=== PATIENT | male | born 1965 ===

== ENCOUNTER 2022-06-05 07:39 | Day surgery (SDC) | payer OTHER ==
[~2022-06-05] VITALS: Ht 172.7 cm; Wt 97.1 kg
[2022-06-05] MEDS ORDERED: ASPI81CH (07:47)
[2022-06-05] MEDS ORDERED: Lisinopril2.5 MG (07:52)
[2022-06-05] MEDS ORDERED: ATOR10 (07:52)
[2022-06-05] MEDS ORDERED: BUPR75 (07:52)
[2022-06-05] MEDS ORDERED: METF500 (07:52)
[2022-06-05] MEDS ORDERED: GABA100 (07:52)
[2022-06-05] MEDS ORDERED: OMEP20ER (07:53)
[2022-06-05 09:45] VITALS: BP 100/64
== END 2022-06-05 09:41 | disposition home or self-care (01) ==
LOC: ORSCSDS 07:39
PROVIDERS: Student in an Organized Health Care Education/Training Program
PROC: 0DBL8ZX Excision of Transverse Colon, Via Natural or Artificial Opening Endoscopic, Diagnostic (ICD-10-PCS; principal; 2022-06-05 08:45)
PROC: 0DBH8ZX Excision of Cecum, Via Natural or Artificial Opening Endoscopic, Diagnostic (ICD-10-PCS; principal; 2022-06-05 08:45)
PROC: 0DBP8ZX Excision of Rectum, Via Natural or Artificial Opening Endoscopic, Diagnostic (ICD-10-PCS; principal; 2022-06-05 08:45)
PROC: 0DBN8ZX Excision of Sigmoid Colon, Via Natural or Artificial Opening Endoscopic, Diagnostic (ICD-10-PCS; principal; 2022-06-05 08:45)
DX: Z12.11 Encounter for screening for malignant neoplasm of colon (principal); Z86.010 Personal history of colon polyps; D12.0 Benign neoplasm of cecum; D12.3 Benign neoplasm of transverse colon; K63.5 Polyp of colon; K57.30 Diverticulosis of large intestine without perforation or abscess without bleeding; E11.9 Type 2 diabetes mellitus without complications; I10 Essential (primary) hypertension; Z79.84 Long term (current) use of oral hypoglycemic drugs; Z79.899 Other long term (current) drug therapy
CPT/HCPCS: 82947; 88305; J2001; J2405; J2704; J7120

== ENCOUNTER 2024-05-21 05:28 | Emergency (ER) | payer OTHER ==
[~2024-05-21] VITALS: Ht 172.7 cm; Wt 95.2 kg
[~2024-05-21 05:28] MED LIST: ASPI81CH; ATOR10; BUPR75; GABA100; Lisinopril2.5 MG PO; METF500 PO; OMEP20ER
[2024-05-21] MEDS ORDERED: ZOLOFT10013 PO (05:52)
[2024-05-21] MEDS ORDERED: FISH OIL 1,0001 EA10 PO (05:53)
[2024-05-21 06:12] LABS: BASOPHILS ABSOLUTE AUTO 0.03 K/mm3 (0.00-0.23); BASOPHILS PERCENT AUTO 0 % (0-2); EOSINOPHILS ABSOLUTE AUTO 0.23 K/mm3 (0.00-0.68); EOSINOPHILS PERCENT AUTO 2 % (0-6); Hematocrit 41.2 % (37.0-53.0); Hemoglobin 14.3 g/dL (13.5-17.5); IMMATURE GRAN ABSOLUTE AUTO 0.03 K/mm3 (0.00-0.10); IMMATURE GRAN PERCENT AUTO 0 % (0-1); LYMPHOCYTES ABSOLUTE AUTO 2.58 K/mm3 (0.84-5.20); LYMPHOCYTES PERCENT AUTO 25 % (21-46); MONOCYTES ABSOLUTE AUTO 0.87 K/mm3 (0.16-1.47); MONOCYTES PERCENT AUTO 8 % (4-13); Mean Corpuscular HGB 29.4 pg (26.0-34.0); Mean Corpuscular HGB Conc 34.7 g/dL (31.5-36.5); Mean Corpuscular Volume 85 fL (80-100); Mean Platelet Volume 9.7 fL (9.1-12.4); NEUTROPHILS ABSOLUTE AUTO 6.65 K/mm3 (1.96-9.15); NEUTROPHILS PERCENT AUTO 64 % (41-73); Platelet Count 206 K/mm3 (150-400); RDW Coefficient Variation 12.4 % (11.7-14.2); RDW Standard Deviation 37.4 fL (35.1-46.3); Red Blood Cell Count 4.87 M/mm3 (4.30-5.90); White Blood Cell Count 10.39 K/mm3 (4.00-11.30)
[2024-05-21] MEDS ORDERED: NS 1,000 ML IV SCH (06:30)
[2024-05-21 06:35] LABS: Albumin, Blood 3.4 g/dL (3.4-5.0); Albumin/Globulin Ratio 1.1 (0.8-1.8); Bilirubin, Total 0.5 mg/dL (0.1-1.0); Bun/Creatinine Ratio 20.7 (12.0-20.0); Calcium, Blood 8.1 mg/dL (8.5-10.1); Creatinine, Blood 0.77 mg/dL (0.60-1.20); Potassium, Blood 3.4 mmol/L (3.5-5.5); Total Protein, Blood 6.4 g/dL (6.4-8.2)
[2024-05-21] MEDS ORDERED: Amoxicillin/Clavulanate K 875 MG Tab PO ONE (07:35)
[2024-05-21] MEDS ORDERED: AMOCLA875 PO (07:47)
[2024-05-21] MEDS ORDERED: ACET500 PO (07:47)
[2024-05-21] MEDS ORDERED: ONDA4 PO (07:47)
[2024-05-21] MEDS ORDERED: MIRALAX17 GM PO (07:48)
[2024-05-21] MEDS ORDERED: Potassium Chloride 20 MEQ TabCR PO ONE (07:50)
[2024-05-21] MEDS ORDERED: Magnesium Oxide 400 MG Tab PO ONE (07:50)
[2024-05-21 07:58] VITALS: BP 127/82
== END 2024-05-21 08:09 | disposition home or self-care (01) ==
LOC: ER 05:28
PROVIDERS: Emergency Medicine
DX: K57.32 Diverticulitis of large intestine without perforation or abscess without bleeding (principal); K21.9 Gastro-esophageal reflux disease without esophagitis; I10 Essential (primary) hypertension; E78.5 Hyperlipidemia, unspecified; R73.03 Prediabetes; Z88.5 Allergy status to narcotic agent; Z79.84 Long term (current) use of oral hypoglycemic drugs; Z79.899 Other long term (current) drug therapy
CPT/HCPCS: 74177; 80053; 83605; 83690; 85025; 96360-59; 99284-25; A9270; J7030; Q9967